=== PATIENT | female | born 1995 | race Caucasian/White ===

== ENCOUNTER 2024-11-12 22:02 | Emergency (ER) | payer BC ==
[~2024-11-12] VITALS: Ht 165.1 cm; Wt 74.0 kg
[2024-11-12 22:06] VITALS: O2SAT 100
[2024-11-12] MEDS: BACITRACIN ZINC OINT UDPKT TOP ONE (23:00)
[2024-11-12] MEDS: LIDOCAINE HCL/PF 1% 10 MG/ML 5ML VIAL INFIL ONE (23:10)
[2024-11-13 00:09] VITALS: BP 158/88; PULSE 106; RESP 20; TEMP 36.7; O2SAT 100
== END 2024-11-13 00:09 | disposition home or self-care (01) ==
LOC: ER 22:02
DX: S61.305A Unspecified open wound of left ring finger with damage to nail, initial encounter (principal); X58.XXXA Exposure to other specified factors, initial encounter; Y93.89 Activity, other specified; Y92.89 Other specified places as the place of occurrence of the external cause; Y99.8 Other external cause status
CPT/HCPCS: 64450; 99284; 73120; J2003; 99283